=== PATIENT | female | born 1995 | race Caucasian/White ===

== ENCOUNTER 2019-08-10 12:47 | Emergency (ER) | payer OTHER ==
[~2019-08-10] VITALS: Ht 162.6 cm; Wt 111.6 kg
[2019-08-10 13:21] VITALS: BP 153/94; Ht 162.6 cm; Wt 111.6 kg
== END 2019-08-10 15:43 | disposition home or self-care (01) ==
LOC: ED 12:47
DX: S61.012A Laceration without foreign body of left thumb without damage to nail, initial encounter (principal); X50.9XXA Other and unspecified overexertion or strenuous movements or postures, initial encounter; Y93.89 Activity, other specified; Y92.89 Other specified places as the place of occurrence of the external cause; Y99.0 Civilian activity done for income or pay
CPT/HCPCS: 90715